=== PATIENT | female | born 1955 | race Caucasian/White ===

== ENCOUNTER 2017-12-08 01:07 | Observation (INO) | payer OTHER ==
[2017-12-08] VITALS (17 sets, daily range): BP systolic 87–137; BP diastolic 53–83; Ht 154.9 cm; Wt 68.9 kg
[~2017-12-08] VITALS: Ht 154.9 cm; Wt 68.9 kg
--- NOTE | 2017-12-08 01:17 | ER Report ---
History and Physical Time Seen By MD: 01:17 HPI/ROS CHIEF COMPLAINT: Right upper quadrant and epigastric abdominal pain HISTORY OF PRESENT ILLNESS: Patient is a 62-year-old female who presents to the emergency department with severe epigastric and right upper quadrant abdominal pain that began approximately 10:30 PM on 12/07/2017. Patient denies having similar episodes in the past. She states the pain is quite severe and unremitting. She is unable to find a comfortable position. The pain is associated with nausea but no emesis of the vomiting or diarrhea. She denies any chest pain or shortness of breath. Patient denies any prior abdominal surgery. She denies any recent change or bladder or bowel habits. She denies any dysuria. REVIEW OF SYSTEMS: Constitutional: No fever, no chills. Eyes: No discharge. ENT: No sore throat. Cardiovascular: No chest pain, no palpitations. Respiratory: No cough, no shortness of breath. Gastrointestinal: Epigastric and right upper quadrant abdominal pain, nausea, no vomiting Genitourinary: No hematuria. Musculoskeletal: No back pain. Skin: No rashes. Neurological: No headache. Allergies: Coded Allergies: morphine (Verified Allergy, Intermediate, 12/08/17) DROPS BLOOD PRESSURE Past Medical/Surgical History Patient reports history of hypertension, hypercholesterolemia and hypothyroidism Constitutional Vital Sign - Last 24 Hours 12/08/17 12/08/17 12/08/17 12/08/17 01:07 01:10 01:14 01:22 Temp 97.5 Pulse ??? 67 64 Resp 20 16 B/P (MAP) 148/88 148/88 (108) Pulse Ox 97 97 O2 Delivery Room Air 12/08/17 12/08/17 12/08/17 12/08/17 01:37 01:42 01:52 02:00 Pulse 67 59 Resp 11 13 B/P (MAP) 97/59 (72) 108/64 (79) Pulse Ox 94 94 12/08/17 12/08/17 12/08/17 12/08/17 02:07 02:29 02:42 02:57 Pulse 62 75 79 Resp 19 19 26 B/P (MAP) 123/59 (80) Pulse Ox 92 87 90 12/08/17 12/08/17 12/08/17 12/08/17 03:00 03:12 03:17 03:27 Pulse 80 82 Resp 20 9 B/P (MAP) 121/73 (89) Pulse Ox 92 87 O2 Flow Rate 2.0 12/08/17 12/08/17 12/08/17 03:30 03:32 03:47 Pulse 77 79 Resp 22 26 B/P (MAP) 131/75 (93) Pulse Ox 93 95 Intake and Output 12/07/17 12/07/17 12/08/17 15:00 23:00 07:00 Intake Total 1000 ml Balance 1000 ml Physical Exam General/Constitutional: Patient is awake, alert, patient is quite uncomfortable secondary to pain Head: Normocephalic and atraumatic. Eyes: Conjunctival clear, Pupils are equal and reactive to light. Extraocular muscles are intact and symmetrical. Sclera are clear and anicteric. Ears:External canals are clear. Tympanic membranes are clear with normal landmarks and light reflex. Nares: No rhinorrhea or bleeding. Turbinates are pink and moist. Oropharyngeal: Mucous membranes are moist. There is no pharyngeal erythema or exudate. There are no palatal petechiae. Uvula is midline and symmetrical. Neck: Supple, no adenopathy. Cardiovascular: Heart is regular rate and rhythm without audible murmurs, rubs or gallops. Pulmonary: Lungs are clear to auscultation bilaterally. There are no wheezes, rales, or rhonchi. Chest rise is symmetrical Abdomen: No distention, epigastric and right upper quadrant abdominal pain with voluntary guarding Extremities: No gross deformities, No peripheral cyanosis. Able to move all 4 extremities. Neuro: Alert and oriented X3, Patient has normal gait. Skin: No rashes, skin is warm dry and well perfused. Medical Decision Making Data Points Result Diagram: 12/08/17 0125 12/08/17 012 Laboratory Hematology Test 12/08/17 01:15 12/08/17 01:25 Urine Color Joyce Urine Clarity Slightly-cloudy Urine pH 5.0 pH (4.8-9.5) Urine Specific [place] 1.024 Urine Protein 30 mg/dL (NEGATIVE) Urine Glucose (UA) Negative mg/dL (NEGATIVE) Urine Ketones Negative mg/dL (NEGATIVE) Urine Blood Negative (NEGATIVE) Urine Nitrite Negative (NEGATIVE) Urine Bilirubin Negative (NEGATIVE) Urine Urobilinogen 4.0 mg/dL (0.2-1.9) Urine Leukocyte Esterase Trace (NEGATIVE) Urine RBC 4 /HPF (0-2/HPF) Urine WBC 5 /HPF (0-5/HPF) Urine Squamous Epithelial Cells Many /LPF (</=FEW) Urine Transitional Epithelial Cells Few /LPF (NONE-FEW) Urine Bacteria Few /HPF (NONE-FEW) Urine Mucus Few /HPF (NONE-FEW) Red Blood Count 5.41 M/uL (4.17-5.56) Mean Corpuscular Volume 84.9 fL (80.0-96.0) Mean Corpuscular Hemoglobin 29.0 pg (26.0-33.0) Mean Corpuscular Hemoglobin Concent 34.1 g/dL (32.0-36.0) Red Cell Distribution Width 15.1 % (11.5-14.5) Mean Platelet Volume 8.1 fL (7.2-11.1) Neutrophils (%) (Auto) 58.3 % (39.4-72.5) Lymphocytes (%) (Auto) 33.9 % (17.6-49.6) Monocytes (%) (Auto) 6.2 % (4.1-12.4) Eosinophils (%) (Auto) 1.0 % (0.4-6.7) Basophils (%) (Auto) 0.6 % (0.3-1.4) Nucleated RBC Relative Count (auto) 0.0 /100WBC Neutrophils # (Auto) 5.2 K/uL (2.0-7.4) Lymphocytes # (Auto) 3.0 K/uL (1.3-3.6) Monocytes # (Auto) 0.5 K/uL (0.3-1.0) Eosinophils # (Auto) 0.1 K/uL (0.0-0.5) Basophils # (Auto) 0.1 K/uL (0.0-0.1) Nucleated RBC Absolute Count (auto) 0.00 K/uL Sodium Level 142 mmol/L (137-145) Potassium Level 3.1 mmol/L (3.5-5.0) Chloride Level 99 mmol/L (98-107) Carbon Dioxide Level 29 mmol/L (22-31) Blood Urea Nitrogen 12 mg/dl (7-18) Creatinine 0.70 mg/dl (0.52-1.04) Glomerular Filtration Rate Calc > 60.0 Random Glucose 151 mg/dl (75-110) Calcium Level 9.7 mg/dl (8.4-10.2) Total Bilirubin 1.0 mg/dl (0.2-1.3) Aspartate Amino Transf (AST/SGOT) 131 U/L (0-35) Alanine Aminotransferase (ALT/SGPT) 77 U/L (0-56) Alkaline Phosphatase 103 U/L (0-126) Total Protein 7.8 g/dl (6.3-8.2) Albumin 4.3 g/dl (3.5-5.0) Lipase 146 U/L (23-300) Helicobacter pylori IgG Antibody Negative (NEGATIVE) Chemistry Test 12/08/17 01:15 12/08/17 01:25 Urine Color Joyce Urine Clarity Slightly-cloudy Urine pH 5.0 pH (4.8-9.5) Urine Specific [place] 1.024 Urine Protein 30 mg/dL (NEGATIVE) Urine Glucose (UA) Negative mg/dL (NEGATIVE) Urine Ketones Negative mg/dL (NEGATIVE) Urine Blood Negative (NEGATIVE) Urine Nitrite Negative (NEGATIVE) Urine Bilirubin Negative (NEGATIVE) Urine Urobilinogen 4.0 mg/dL (0.2-1.9) Urine Leukocyte Esterase Trace (NEGATIVE) Urine RBC 4 /HPF (0-2/HPF) Urine WBC 5 /HPF (0-5/HPF) Urine Squamous Epithelial Cells Many /LPF (</=FEW) Urine Transitional Epithelial Cells Few /LPF (NONE-FEW) Urine Bacteria Few /HPF (NONE-FEW) Urine Mucus Few /HPF (NONE-FEW) White Blood Count 8.8 k/uL (4.5-11.0) Red Blood Count 5.41 M/uL (4.17-5.56) Hemoglobin 15.7 g/dL (12.0-16.0) Hematocrit 45.9 % (34.0-47.0) Mean Corpuscular Volume 84.9 fL (80.0-96.0) Mean Corpuscular Hemoglobin 29.0 pg (26.0-33.0) Mean Corpuscular Hemoglobin Concent 34.1 g/dL (32.0-36.0) Red Cell Distribution Width 15.1 % (11.5-14.5) Platelet Count 282 K/uL (150-450) Mean Platelet Volume 8.1 fL (7.2-11.1) Neutrophils (%) (Auto) 58.3 % (39.4-72.5) Lymphocytes (%) (Auto) 33.9 % (17.6-49.6) Monocytes (%) (Auto) 6.2 % (4.1-12.4) Eosinophils (%) (Auto) 1.0 % (0.4-6.7) Basophils (%) (Auto) 0.6 % (0.3-1.4) Nucleated RBC Relative Count (auto) 0.0 /100WBC Neutrophils # (Auto) 5.2 K/uL (2.0-7.4) Lymphocytes # (Auto) 3.0 K/uL (1.3-3.6) Monocytes # (Auto) 0.5 K/uL (0.3-1.0) Eosinophils # (Auto) 0.1 K/uL (0.0-0.5) Basophils # (Auto) 0.1 K/uL (0.0-0.1) Nucleated RBC Absolute Count (auto) 0.00 K/uL Glomerular Filtration Rate Calc > 60.0 Calcium Level 9.7 mg/dl (8.4-10.2) Total Bilirubin 1.0 mg/dl (0.2-1.3) Aspartate Amino Transf (AST/SGOT) 131 U/L (0-35) Alanine Aminotransferase (ALT/SGPT) 77 U/L (0-56) Alkaline Phosphatase 103 U/L (0-126) Total Protein 7.8 g/dl (6.3-8.2) Albumin 4.3 g/dl (3.5-5.0) Lipase 146 U/L (23-300) Helicobacter pylori IgG Antibody Negative (NEGATIVE) Urinalysis Test 12/08/17 01:15 Urine Color Joyce Urine Clarity Slightly-cloudy Urine pH 5.0 pH (4.8-9.5) Urine Specific [place] 1.024 Urine Protein 30 mg/dL (NEGATIVE) Urine Glucose (UA) Negative mg/dL (NEGATIVE) Urine Ketones Negative mg/dL (NEGATIVE) Urine Blood Negative (NEGATIVE) Urine Nitrite Negative (NEGATIVE) Urine Bilirubin Negative (NEGATIVE) Urine Urobilinogen 4.0 mg/dL (0.2-1.9) Urine Leukocyte Esterase Trace (NEGATIVE) Urine RBC 4 /HPF (0-2/HPF) Urine WBC 5 /HPF (0-5/HPF) Urine Squamous Epithelial Cells Many /LPF (</=FEW) Urine Transitional Epithelial Cells Few /LPF (NONE-FEW) Urine Bacteria Few /HPF (NONE-FEW) Urine Mucus Few /HPF (NONE-FEW) EKG/Imaging Imaging 12/08/2017 1:57:12 am bedside ultrasound shows no hydronephrosis of the right kidney the gallbladder is distended without gallbladder wall thickening. There does appear to be a gallstone. + sonographic dunn's sign FACILITY: [facility] PATIENT NAME: Laura Meadows : 1955 MR: [id number] V: [id number] EXAM DATE: [id number] ORDERING PHYSICIAN: RONNIE SCHERER TECHNOLOGIST: Location: [facility] Patient: Laura Meadows : 1955 Visit/Account:[id number] Date of Sevice: 12/08/2017 CT of the abdomen and pelvis with contrast: Indication: Right upper quadrant pain. Technique: Helical CT was performed through the abdomen and pelvis following IV contrast enhancement with 75 cc of Isovue-370. Multiplanar reconstructions are reviewed. One of the following dose optimization techniques was utilized in the performance of this exam: Automated exposure control; adjustment of the mA and/or kV according to the patient's size; or use of an iterative reconstruction technique. Specific details can be referenced in the facility's radiology CT exam operational policy. Comparison: None. Lower lung crook: There is linear atelectasis at the lung bases. No parenchymal consolidation or pleural effusion is identified. Liver: Normal in size and shape. A small simple cyst is present near the dome. No other focal liver lesions are identified. There is uniform enhancement of the venous structures. Gallbladder/biliary tree: The gallbladder appears distended, measuring approximately 9.1 cm in length. Small opaque calculi are present near the neck. The findings suggest acute cholecystitis. There is no obvious thickening or edema of the wall. There is no around the gallbladder fossa. The bile ducts are normal in caliber. Pancreas: Normal in size, shape, and density. There are no signs of peripancreatic inflammation or fluid. Spleen: Normal in size, shape, and density. Adrenal glands: Within normal limits. Kidneys/urinary bladder: The kidneys are normal in size and shape. A few tiny cortical cysts are present. The renal parenchyma is otherwise unremarkable. There are no signs of urinary tract calculus or obstruction. The bladder is unremarkable, as visualized. Intestinal structures: There is moderate diverticulosis throughout the colon. There are no signs of acute diverticulitis. There is no evidence of intestinal obstruction or focal dilatation. The appendix is not visualized. Pelvis: The uterus and adnexal structures are unremarkable, as visualized. There are no signs of inflammation or fluid in the pelvis. Aorta and vascular structures: There is mild atherosclerotic calcification in the aorta and iliac arteries. There are no signs of aneurysm. Ascites or fluid collections: None seen. Skeletal structures: There is minimal scoliosis in the lumbar spine. There is mild disc space narrowing and osteophyte formation. No acute skeletal deformity is clearly identified. Impression: The gallbladder is distended. Small opaque calculi are present near the neck. The findings suggest acute cholecystitis. Additional clinical correlation is advised. Report Dictated By: Jaspal Smith MD at 12/08/2017 2:55 AM Report E-Signed By: Jaspal Smith MD at 12/08/2017 3:10 AM WSN:[id number] ED Course/Re-evaluation Clinical Indication for ER IV: Hydration, IV Access ED Course 12/08/2017 2:41:23 am patient's pain and nausea have improved follow a total of 100 g of IV fentanyl and 4 mg of IV Zofran along with IV fluids. Blood work is essentially unremarkable her slight elevation in the AST T with a normal bilirubin and alkaline phosphatase. White count is normal electrolytes are normal. CT scan of the abdomen and pelvis is pending. 12/08/2017 3:43:12 am patient's pain is returning we'll redosed with IV fentanyl. CT scan consistent with acute cholecystitis. Case was discussed with the on-call general surgeon Dr. Sawyer at this time will be to admit to the floor patient will be nothing by mouth Dr. Sawyer would like us to start Zosyn IV every 6 hours. Patient and were made aware of ultimate disposition no questions or concerns at this time. Decision to Disposition Date: Dec 08, 2017 Decision to Disposition Time: 03:44 Depart Departure Latest Vital Signs Vital Signs Date Time Temp Pulse Resp B/P (MAP) Pulse Ox O2 Delivery O2 Flow Rate FiO2 12/08/17 03:47 79 26 95 12/08/17 03:30 131/75 (93) 12/08/17 03:27 2.0 12/08/17 01:10 97.5 Room Air Impression: Primary Impression: Acute cholecystitis Condition: Improved Disposition: Admitted from ER (to Dr Sawyer) RONNIE SCHERER MD Dec 08, 2017 01:17
[2017-12-08] MEDS ORDERED: fentaNYL CITR 100 MCG/2 ML AMP IVP ONE ×3 (01:30→03:10)
[2017-12-08] MEDS ORDERED: ONDANSETRON 4 MG/2 ML VIAL IVP ONE (01:30)
[2017-12-08] MEDS ORDERED: NS(*) 0.9% 1000 ML BAG 1,000 ML IV ONE (01:30)
[2017-12-08 01:42] LABS: PLATELET COUNT, AUTOMATED 282 K/uL (150-450)
[2017-12-08] MEDS ORDERED: IOPAMIDOL 76% 75 ML INFUS BTL 75 ML ONE (02:02)
--- NOTE | 2017-12-08 03:21 | RADIOLOGY IMAGING REPORT ---
[place] [facility] [place] Laura Meadows : 1955 MR: [id number] V: [id number] EXAM DATE: [id number] ORDERING PHYSICIAN: RONNIE SCHERER TECHNOLOGIST: Location: [facility] - [place] Patient: Laura Meadows : 1955 Visit/Account:[id number] Date of Sevice: 12/08/2017 CT of the abdomen and pelvis with contrast: Indication: Right upper quadrant pain. Technique: Helical CT was performed through the abdomen and pelvis following IV contrast enhancement with 75 cc of Isovue-370. Multiplanar reconstructions are reviewed. One of the following dose optimization techniques was utilized in the performance of this exam: Autom ated exposure control; adjustment of the mA and/or kV according to the patient's size; or use of an i terative reconstruction technique. Specific details can be referenced in the facility's radiology CT exam operational policy. Comparison: None. Lower lung crook: There is linear atelectasis at the lung bases. No parenchymal consolidation or ple ural effusion is identified. Liver: Normal in size and shape. A small simple cyst is present near the dome. No other focal liver l esions are identified. There is uniform enhancement of the venous structures. Gallbladder/biliary tree: The gallbladder appears distended, measuring approximately 9.1 cm in length . Small opaque calculi are present near the neck. The findings suggest acute cholecystitis. There is no obvious thickening or edema of the wall. There is no around the gallbladder fossa. The bile ducts are normal in caliber. Pancreas: Normal in size, shape, and density. There are no signs of peripancreatic inflammation or fl uid. Spleen: Normal in size, shape, and density. Adrenal glands: Within normal limits. Kidneys/urinary bladder: The kidneys are normal in size and shape. A few tiny cortical cysts are pres ent. The renal parenchyma is otherwise unremarkable. There are no signs of urinary tract calculus or obstruction. The bladder is unremarkable, as visualized. Intestinal structures: There is moderate diverticulosis throughout the colon. There are no signs of a cute diverticulitis. There is no evidence of intestinal obstruction or focal dilatation. The appendix is not visualized. Pelvis: The uterus and adnexal structures are unremarkable, as visualized. There are no signs of infl ammation or fluid in the pelvis. Aorta and vascular structures: There is mild atherosclerotic calcification in the aorta and iliac art eries. There are no signs of aneurysm. Ascites or fluid collections: None seen. Skeletal structures: There is minimal scoliosis in the lumbar spine. There is mild disc space narrowi ng and osteophyte formation. No acute skeletal deformity is clearly identified. Impression: The gallbladder is distended. Small opaque calculi are present near the neck. The finding s suggest acute cholecystitis. Additional clinical correlation is advised. Report Dictated By: Jaspal Smith MD at 12/08/2017 2:55 AM Report E-Signed By: Jaspal Smith MD at 12/08/2017 3:10 AM WSN:[id number]
--- NOTE | 2017-12-08 03:28 | EKG ---
FACILITY: [facility] - [place] PATIENT NAME: LUCIANO THOMAS : [id number] MR: [id number] V: [id number] EXAM DATE: ORDERING PHYSICIAN: RONNIE SCHERER TECHNOLOGIST: NINO Test Reason : EPIGASTRIC PAIN Blood Pressure : / mmHG Vent. Rate : 069 BPM Atrial Rate : 069 BPM P-R Int : 166 ms QRS Dur : 084 ms QT Int : 440 ms P-R-T Axes : 035 -24 072 degrees QTc Int : 471 ms Normal sinus rhythm Nonspecific T wave abnormality Prolonged QT Abnormal ECG No previous ECGs available Confirmed by Miky Colon ([id number]) on 12/08/2017 6:19:12 AM Referred By: Confirmed By:Miky Mcmillan
[2017-12-08] MEDS ORDERED: D5 1/2 NS(*) 1000 ML BAG 1,000 ML IV PRN (04:20)
[2017-12-08] MEDS ORDERED: HYDROmorphone PCA 6 MG/30 ML IV PRN (04:20)
[2017-12-08] MEDS ORDERED: NALOXONE HCL 0.4 MG/ML VIAL IVP PRN (04:40)
[2017-12-08] MEDS: PIPERACILLIN/TAZO*3.375GM VIAL 3.375 GM in NS(*) 0.9% 100 ML ADDVANT BAG 100 ML IVPB SCH ×3 (06:24→17:58)
--- NOTE | 2017-12-08 07:43 | Gen Surgery History & Physical ---
History of Present Illness Chief Complaint RUQ pain History of Present Illness This 62 year old female presents to ED with RUQ pain. This pain came on suddenly after eating and has persisted. The pain radiates around to her back. Associated nausea. She denies fever or chills. No history of jaundice, acholic stools, or dark urine. She was evaluated in ED and found to have gallstones and evidence of cholecystitis. She was administered IV Zosyn. She is admitted for laparoscopic cholecystectomy. History Problems: (1) Borderline diabetes mellitus Status: Chronic Allergies: Coded Allergies: morphine (Verified Allergy, Intermediate, 12/08/17) DROPS BLOOD PRESSURE Patient History: FH: heart disease FH: migraine headache CHILD FHx: COPD (chronic obstructive pulmonary disease) MOTHER FHx: liver cancer FATHER Kidney stone CHILD Review of Systems All Systems Reviewed/Normal: Yes, Except as Noted Gastrointestinal: Nausea, Abdominal Pain Exam General Appearance: Alert, Awake, No Acute Distress, Afebrile Neuro: No Gross deficits Eyes: PERRLA ENT: Moist Mucous Membranes Cardiovascular: Regular Rate and Rhythm Respiratory: No Respiratory Distress, Clear to Auscultation GI: Other (Tender in RUQ with positive Miller's sign, bowel sounds present.) Extremities: Soft and Non Tender Psych: Alert & Oriented X3, Appropriate Mood & Affect Medical Decision Making Data Points Result Diagram: 12/08/1712412/08/17124 EKG / Imaging Monitor Interpretation: Normal Sinus Rhythm Imaging Distended GB with stones on CT abdomen. Pre-Admit Course ED Medications Zosyn Medical Record Review: Yes Assessment and Plan Problems: (1) Acute cholecystitis Status: Acute Assessment & Plan: I have reviewed in detail with patient and her the diagnosis of cholecystitis with cholelithiasis, and discussed the possible treatment options. I reviewed the procedure of laparoscopic cholecystectomy and IOC including the risks and possible complications. She has had all her questions answered and wishes to proceed with surgery. Informed consent obtaine rianna MATOS and Maricruzn has been given. To OR as soon as room in available. (2) Borderline diabetes mellitus Status: Chronic Assessment & Plan: Will follow blood sugars. Time Spent: > 30 min Venous Thromboembolism VTE Risk Physician Assess for VTE Risk: Yes Patient's VTE Risk: Low VTE Diagnostic Test 2 Days Prior to Admit: No Antithrombotics Is Pt On Any Antithrombotics?: No Prophylaxis Tx Contraindicated Pharmacological Contraindicati: Pt at Low Risk for VTE KO YA MD Dec 08, 2017 07:43
[2017-12-08] MEDS ORDERED: LR(*) 1000 ML BAG 1,000 ML IV PRN ×2 (08:40→16:11)
[2017-12-08] MEDS ORDERED: NORMOSOL R SOLN(*) 1000 ML BAG 1,000 ML IV ONE (09:24)
[2017-12-08] MEDS: ONDANSETRON 4 MG/2 ML VIAL IVP PRN ×2 (09:35→17:50)
[2017-12-08] MEDS ORDERED: LEVO50TA86 PO (09:56)
[2017-12-08] MEDS ORDERED: LEVO75TA73 PO (09:56)
[2017-12-08] MEDS ORDERED: FAMOTIDINE 20 MG TAB PO ONE (11:15)
[2017-12-08] MEDS ORDERED: SUGAMMADEX SOD 200 MG/2 ML SDV ONE (13:45)
[2017-12-08] MEDS ORDERED: ROCURONIUM BROM 10 MG/ML 10 ML ONE (13:45)
[2017-12-08] MEDS ORDERED: LIDOCAINE MPF 1% 5 ML VIAL ONE (13:45)
[2017-12-08] MEDS ORDERED: DEXAMETHASONE SOD 4 MG/ML VIAL ONE (13:45)
[2017-12-08] MEDS ORDERED: PROPOFOL EMUL(*) 10MG/ML 20 ML 20 ML ONE (13:45)
[2017-12-08] MEDS ORDERED: fentaNYL CITR 250 MCG/5 ML AMP ONE (13:45)
[2017-12-08] MEDS ORDERED: ONDANSETRON 4 MG/2 ML VIAL ONE (13:45)
[2017-12-08] MEDS ORDERED: KETAMINE HCL 200 MG/20 ML MDV ONE (13:54)
[2017-12-08] MEDS ORDERED: BUPIVACAINE/EPI 0.5% 50ML VIAL INFIL ONE (14:39)
[2017-12-08] MEDS ORDERED: MIDAZOLAM 2 MG/2 ML VIAL IVP ONE (14:40)
[2017-12-08] MEDS ORDERED: IOPAMIDOL 61% 75 ML INFUS BTL 75 ML ONE (14:43)
[2017-12-08] MEDS ORDERED: NS 0.9% IRRIGATION 1000ML PLCT IR ONE (15:30)
--- NOTE | 2017-12-08 16:11 | Post Operative Progress Note ---
Post Operative Progress Note Date: Dec 08, 2017 Time: 16:09 Surgeon: Silverio Syrup Mixer: BRANDON Anesthesia: General Pre-Op Diagnosis: Cholecystitis, cholelithiasis Post-Op Diagnosis: same Findings: IOC negative for stones, free flow of contrast into duodenum Procedure(s): Laparoscopic cholecystectomy and IOC Specimen Removed:(May be N/A): gallbladder with stones Complications: none Estimated Blood Loss: < 5 ml Date OP Note Dictated: Dec 08, 2017 Time OP Note Dictated: 16:10 KO YA MD Dec 08, 2017 16:11
[2017-12-08] MEDS ORDERED: fentaNYL CITR 100 MCG/2 ML AMP ONE (16:45)
--- NOTE | 2017-12-08 16:54 | RADIOLOGY IMAGING REPORT ---
FACILITY: [facility] - [place] PATIENT NAME: Laura Meadows : 1955 MR: [id number] V: [id number] EXAM DATE: ORDERING PHYSICIAN: KO YA TECHNOLOGIST: Location: [facility] Patient: Laura Meadows : 1955 Visit/Account:[id number] Date of Sevice: 12/08/2017 EXAMINATION: Interoperative Cholangiogram 12/08/2017 2:45 PM HISTORY: CHOLECYSTITIS COMPARISON: CT 12/08/2017 FLUOROSCOPY TIME: 6.3 seconds DOSE: DAP was 0.33920 mGy*m2. FINDINGS: Intraoperative fluoroscopy was provided. Imaging demonstrates intraoperative cholangiogra m with contrast injection via the cystic duct remnant. Visualized bile ducts are unremarkable in kamran earance without focal stricture or irregularity. No visible choledocholithiasis. Free spill into th e duodenum is shown. IMPRESSION: Unremarkable intraoperative cholangiogram. Report Dictated By: oMris Carmichael MD at 12/08/2017 4:48 PM Report E-Signed By: Moris Carmichael MD at 12/08/2017 4:50 PM WSN:[id number]
[2017-12-08] MEDS: APAP/HYDROCODONE 325/5 TAB PO PRN (19:43)
[2017-12-08] MEDS ORDERED: BUTA1TAB14 PO (23:06)
[2017-12-08] MEDS ORDERED: CYCL10TA29 PO (23:06)
[2017-12-08] MEDS ORDERED: OMEP-218 PO (23:06)
[2017-12-08] MEDS ORDERED: TRIA-20 PO (23:06)
[2017-12-08] MEDS ORDERED: PRAV20TA65 PO (23:06)
[2017-12-09] VITALS: BP 115/71
[2017-12-09] MEDS: PIPERACILLIN/TAZO*3.375GM VIAL 3.375 GM in NS(*) 0.9% 100 ML ADDVANT BAG 100 ML IVPB SCH ×2 (00:19→05:38)
[2017-12-09] MEDS: APAP/HYDROCODONE 325/5 TAB PO PRN ×3 (00:30→09:40)
[2017-12-09 04:11] VITALS: BP 118/74
[2017-12-09] MEDS ORDERED: PANTOPRAZOLE SOD 20 MG TABEC PO SCH (07:10)
[2017-12-09] MEDS ORDERED: PANTOPRAZOLE SOD 40 MG TABEC PO ONE (08:00)
[2017-12-09 08:09] VITALS: BP 126/77
[2017-12-09] MEDS ORDERED: FUROSEMIDE 20 MG/2 ML VIAL IVP ONE (09:20)
--- NOTE | 2017-12-09 09:23 | General Surgery Progress Note ---
Subjective Progress Notes Subjective pain controlled desating to mid 80s on RA no flatus Physical Exam Vital Signs Date Time Temp Pulse Resp B/P (MAP) Pulse Ox O2 Delivery O2 Flow Rate FiO2 12/09/17 08:09 98.3 57 16 126/77 (93) 93 Nasal Cannula 2.0 Intake and Output 12/09/17 07:00 Intake Total 4343 ml Output Total 51 ml Balance 4292 ml Intake Oral 50 ml IV Total 2493 ml Other 1800 ml Output Urine Total 1 ml Emesis 50 ml # Voids 7 General Appearance: Alert, Awake, No Acute Distress ENT: Moist Mucous Membranes Cardiovascular: Normal Rhythm & Peripheral Pulses Respiratory: No Respiratory Distress, Clear to Auscultation GI: Soft and Non-Tender, Other (incisions c/d/i, attp) Extremities: Warm, Perfused Psych: Alert & Oriented X3 Result Diagram: 12/08/1712412/08/17124 Monitor Interpretation: Normal Sinus Rhythm Assessment and Plan Problems: (1) Acute cholecystitis Status: Acute Assessment & Plan: POD1 lap katy with IOC Doing well. Tolerating regular diet. Pain controlled. Vitals normal apart from desating on RA to mid 80s Lasix 20mg IV ordered and CXR ordered Will ambulate patient and attempt to wean O2 Plan on discharge today, may need home O2 for a short period of time (2) Borderline diabetes mellitus Status: Chronic Assessment & Plan: Will follow blood sugars. Exam Sepsis Risk: No Definite Risk YOSEPH MENA MD Dec 09, 2017 09:23
[2017-12-09] MEDS ORDERED: SENN1TAB28 PO (09:29)
--- NOTE | 2017-12-09 09:30 | Hospitalist Depart ---
Discharge Summary Reason for Hosp/Final Diag: (1) Acute cholecystitis Status: Acute Hospital Course & Plan: POD1 lap katy with IOC Doing well. Tolerating regular diet. Pain controlled. Vitals normal apart from desating on RA to mid 80s Lasix 20mg IV ordered and CXR ordered Will ambulate patient and attempt to wean O2 Plan on discharge today, may need home O2 for a short period of time (2) Borderline diabetes mellitus Status: Chronic Hospital Course & Plan: Will follow blood sugars. Departure Weight (Pounds): 152 Result Diagram: 12/08/1712412/08/17124 Condition: Improved Discharge: Home Discharge Code Status: Full Code Time Spent: > 30 min Discharge Instructions Home Meds Reported Medications Butalb/Acetaminophen/Caff 50-325-40 Mg (FIORICET 50-325-40) 1 Each Tablet, 1-2 TAB PO Q4H, #30 TAB 12/08/17 Cyclobenzaprine Hcl (CYCLOBENZAPRINE HCL) 10 Mg Tablet, 2.5 MG PO PRN for Muscle Relaxant, #9 TAB 12/08/17 Pravastatin Sodium (PRAVACHOL) 20 Mg Tablet, 40 MG PO QHS, TAB 12/08/17 Omeprazole Magnesium (PRILOSEC OTC) 20 Mg Tablet.dr, 1 TAB PO QDAY, TAB 12/08/17 Triamterene/Hydrochlorothiazid (TRIAMTERENE-HCTZ 37.5-25 MG TB) 1 Each Tablet, 0.5 EACH PO QDAY 12/08/17 Levothyroxine Sodium (LEVOTHYROXINE SODIUM) 75 Mcg Tablet, 75 MCG PO QODAY, TAB 12/08/17 Levothyroxine Sodium (LEVOTHYROXINE SODIUM) 50 Mcg Tablet, 50 MCG PO QODAY, TAB 12/08/17 Venous Thromboembolism VTE Risk Physician Assess for VTE Risk: Yes Patient's VTE Risk: Low VTE Diagnostic Test 2 Days Prior to Admit: No Antithrombotics Is Pt On Any Antithrombotics?: No YOSEPH MENA MD Dec 09, 2017 09:30
--- NOTE | 2017-12-09 10:15 | RADIOLOGY IMAGING REPORT ---
[facility] PATIENT NAME: Laura Meadows : 1955 MR: [id number] V: [id number] EXAM DATE: ORDERING PHYSICIAN: YOSEPH MENA TECHNOLOGIST: Location: [facility] [place] Patient: Laura Meadows : 1955 Visit/Account:[id number] Date of Sevice: 12/09/2017 Exam type: CHEST SINGLE AP History: low o2 sats postop Comparison: None. Findings: There is elevation of the right hemidiaphragm. There is mild peribronchial thickening in the lower l dean crook. No evidence of focal infiltrates pleural effusions or pulmonary edema. The cardiac silh ouette is normal in size. Surgical clips project over the pulmonary apices. There are postsurgical changes of the cervical spine IMPRESSION: 1. Elevation of the right hemidiaphragm Mild peribronchial thickening in the lower lung crook. Different diagnosis would include chronic pe ribronchial thickening or an acute peribronchial inflammatory process Report Dictated By: Kanika Johnson MD at 12/09/2017 10:07 AM Report E-Signed By: Kanika Johnson MD at 12/09/2017 10:12 AM WSN:[id number]
[2017-12-09 10:53] VITALS: BP 130/69
--- NOTE | 2017-12-09 11:23 | OPERATIVE REPORT 1 ---
EVENT DATE: December 08, 2017 SURGEON: Alberto Sawyer MD ANESTHESIOLOGIST: Rohith Johnson MD ANESTHESIA: General endotracheal. 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 POSTOPERATIVE DIAGNOSIS Cholelithiasis/cholecystitis. PROCEDURE PERFORMED Laparoscopic cholecystectomy with intraoperative cholangiography. PROCEDURE IN DETAIL Mrs. Meadows was taken to the operating room and placed in supine position. After induction of adequate general endotracheal, the abdomen was prepped and draped in the usual sterile fashion. A timeout was taken. The patient had received Zosyn preoperatively. SCDs were in place. All bony prominences were well padded. Once cleared by anesthesia, attention was then turned to the umbilicus where an incision was made at the infraumbilical fold. This was carried through the skin and subcutaneous tissue. A penetrating was placed at the base of the appendix. This was retracted anteriorly. The midline fascia was then incised. The peritoneal cavity was entered under direct visualization. An 0 Vicryl suture was placed in the fascia. Exploration of the peritoneal cavity was remarkable for a chronically inflamed appearing gallbladder. Additional ports were then inserted under direct visualization, a [address] between the xiphoid process and umbilicus, and two 5 mm ports in the right upper quadrant. Ratchet graspers were then used to retract the infundibulum laterally and the fundus anteriorly and superiorly. Using the Harmonic scalpel, the peritoneal reflection along the liver edge was then incised. The peritoneum overlying the radames hepatis was then incised. Using careful blunt dissection, the cystic duct and cystic artery were carefully identified. A critical view of safety was obtained. A hemoclip was applied on the infundibular side of the cystic duct. A taut catheter was then inserted through a 14 gauge IV catheter, through the abdominal wall. The cystic duct was opened and this was positioned in the cystic duct and held in place with a hemoclip. Intraoperative cholangiography was performed. This showed free flow of dye into the duodenum. There were no filling defects noted. The ductal anatomy appeared normal. The taut catheter was removed and the cystic duct was then doubly clipped and divided. The cystic artery was then divided with the Harmonic scalpel. The gallbladder was then dissected free from the liver bed using the Harmonic scalpel. With the gallbladder free, it was placed in an Endopouch and removed from the peritoneal cavity via the umbilical port. The port was replaced. The operative site was inspected. Adequate hemostasis confirmed. The ports were removed under direct visualization. All wounds were infiltrated with 0.25% Marcaine with Epinephrine for postop pain control. The pneumoperitoneum was completely evacuated. The fascia of the umbilical port site was then closed with the [id number] 0 Vicryl suture. Adequate hemostasis was noted at all wounds. The skin of all wounds were then closed with simple running 4-0 Monocryl suture and Dermabond. Final sponge, instrument and needle count were correct x 2. The patient tolerated this well and was taken to the PACU in stable condition. The patient will be returned to her post surgical bed for observation with anticipated [facility]
[2017-12-09] MEDS ORDERED: SENN1TAB PO (11:48)
[2017-12-09] MEDS ORDERED: SENN-228 PO (11:49)
== END 2017-12-09 09:23 | disposition home or self-care (01) ==
LOC: ER 01:10 → INTOOBSV 03:54 → MED 03:54
PROVIDERS: ADMIT Surgery; ATTEND Surgery
DX: K80.10 Calculus of gallbladder with chronic cholecystitis without obstruction (principal); I10 Essential (primary) hypertension
CPT/HCPCS: 47563; 71045; 74177; 74300; 81001; 83690; 85025; 86677; 88304; 93005; 96361; 96374; 96375; 96376; 99284; G0378; J1100; J1170; J1940; J2001; J2250; J2405; J2543; J2704; J3010; J3490; J7030; J7050; J7120; Q9967; 82040; 82247; 82310; 82374; 82435; 82565; 82947; 84075; 84132; 84155; 84295; 84450; 84460; 84520